=== PATIENT | male | born 1965 | race African-American/Black ===

== ENCOUNTER 2017-11-11 08:50 | Day surgery (SDC) | payer MEDICAID ==
[~2017-11-11] VITALS: Ht 170.2 cm; Wt 82.7 kg
[~2017-11-11 08:50] MED LIST: AMLO-511 PO; ASPI-1182 PO; GLIM2 PO; LOSA25TA21 PO; METF500T4 PO; SODIUM CHLORIDE 0.9% 1,000 ML IV ONE
[2017-11-11] MEDS ORDERED: MIDAZOLAM HCL 2 MG/2 ML VIAL IVP ONE (08:51)
[2017-11-11] MEDS ORDERED: PROPOFOL 1% 20 ML VIAL IVP ONE (08:51)
[2017-11-11 09:42] LABS: GLUCOMETER DEV NAME(LOC) SDS 5; GLUCOSE,POINT OF CARE 127 MG/DL (70-110)
[2017-11-11] MEDS ORDERED: FentaNYL CITRATE-PF 100 MCG/2 ML VIAL IVP PRN (11:00)
[2017-11-11] MEDS ORDERED: HYDROmorphone 2 MG/ML SYRINGE IVP PRN (11:00)
[2017-11-11] MEDS ORDERED: MEPERIDINE-PF 25 MG/ML SYRINGE IVP PRN (11:00)
[2017-11-11] MEDS ORDERED: OXYGEN THERAPY IH SCH (20:00)
== END 2017-11-11 12:20 | disposition home or self-care (01) ==
LOC: SURGERY 08:50
PROVIDERS: ATTEND Internal Medicine Gastroenterology
DX: D12.3 Benign neoplasm of transverse colon (principal); I10 Essential (primary) hypertension; E11.9 Type 2 diabetes mellitus without complications; F12.21 Cannabis dependence, in remission; Z79.82 Long term (current) use of aspirin; Z79.84 Long term (current) use of oral hypoglycemic drugs; Z79.01 Long term (current) use of anticoagulants
CPT/HCPCS: 45385; 82962; 88305; J2250; J2704; J7030